=== PATIENT | female | born 1990 | race Two or more races ===

== ENCOUNTER → 2020-11-11 | Outpatient (CLI) | payer MEDICAID ==
[2020-11-11 12:53] LABS: Basophils # (auto) 0.1 10 ^3/uL (0-0.2); Basophils % (auto) 0.6 % (0.0-2.0); Eosinophils # (auto) 0.2 10 ^3/uL (0-0.8); Eosinophils % (auto) 1.6 % (0.0-7.0); Hematocrit 40.3 % (36.0-46.0); Hemoglobin 14.2 g/dL (12.2-16.2); Lymphocytes # (auto) 1.6 10 ^3/uL (0.4-5.4); Lymphocytes % (auto) 14.5 % (10.0-50.0); Mean Corpuscular Hemoglobin 32.2 pg (28.0-32.0); Mean Corpuscular Hgb Conc. 35.3 g/dL (32.0-36.0); Mean Corpuscular Volume 91.1 fL (80.0-100.0); Monocytes # (auto) 0.6 10 ^3/uL (0-1.3); Neutrophils # (auto) 8.6 10 ^3/uL (1.6-8.6); Neutrophils % (auto) 78.3 % (37.0-80.0); Nucleated Red Blood Cells % 0.1 %; Platelet Count (auto) 250 10^3/uL (140-450); Red Blood Cells 4.42 10^6/uL (4.0-5.20); Red Cell Distribution Width 12.8 % (11.8-14.3)
[2020-11-11 13:54] LABS: Amphetamine Screen, Urine NEGATIVE (NEGATIVE); Barbiturate Scree,Urine NEGATIVE (NEGATIVE); Benzodiazephine Screen, Urine NEGATIVE (NEGATIVE); Cannabinoid Screen, Urine NEGATIVE (NEGATIVE); Cocaine Screen, Urine NEGATIVE (NEGATIVE); Opiate Scree,Urine NEGATIVE (NEGATIVE); Phencyclidine Screen, Urine NEGATIVE (NEGATIVE)
[2020-11-12 06:06] LABS: RPR Non Reactive (Non Reactive)
== END | disposition home or self-care (01) ==
LOC: LAB 12:12
PROVIDERS: ATTEND Obstetrics & Gynecology
DX: Z34.80 Encounter for supervision of other normal pregnancy, unspecified trimester (principal); Z31.430 Encounter of female for testing for genetic disease carrier status for procreative management; N39.0 Urinary tract infection, site not specified; Z3A.00 Weeks of gestation of pregnancy not specified
CPT/HCPCS: 36415; 80307; 81220; 83036; 84112; 84144; 84702; 85025; 85049; 86592; 86703; 86765; 86850; 86900; 86901; 87086; 87340

== ENCOUNTER → 2020-11-26 | Outpatient (CLI) | payer MEDICAID ==
[2020-11-26 11:48] LABS: Urine WBC None Seen /hpf (0 - 5)
[2020-11-26 11:59] LABS: Basophils # (auto) 0 10 ^3/uL (0-0.2); Basophils % (auto) 0.3 % (0.0-2.0); Eosinophils # (auto) 0.2 10 ^3/uL (0-0.8); Eosinophils % (auto) 1.5 % (0.0-7.0); Hematocrit 38.2 % (36.0-46.0); Hemoglobin 13.1 g/dL (12.2-16.2); Lymphocytes # (auto) 1.5 10 ^3/uL (0.4-5.4); Lymphocytes % (auto) 13.7 % (10.0-50.0); Mean Corpuscular Hemoglobin 31.3 pg (28.0-32.0); Mean Corpuscular Hgb Conc. 34.2 g/dL (32.0-36.0); Mean Corpuscular Volume 91.5 fL (80.0-100.0); Monocytes # (auto) 0.5 10 ^3/uL (0-1.3); Monocytes % (auto) 4.5 % (0.0-12.0); Neutrophils # (auto) 8.7 10 ^3/uL (1.6-8.6); Red Blood Cells 4.17 10^6/uL (4.0-5.20); Red Cell Distribution Width 12.7 % (11.8-14.3); White Blood Cell 10.9 10^3/uL (4.4-10.8)
[2020-11-26 12:18] LABS: Urine Bacteria NONE SEEN /hpf (None Seen); Urine Blood Negative /uL (Negative); Urine Specific Gravity 1.012 (1.001-1.035)
== END | disposition home or self-care (01) ==
LOC: LAB 11:02
PROVIDERS: ATTEND Specialist
DX: Z34.80 Encounter for supervision of other normal pregnancy, unspecified trimester (principal); Z3A.00 Weeks of gestation of pregnancy not specified
CPT/HCPCS: 36415; 81001; 85025; 86703; 86762; 86850; 86900; 86901

== ENCOUNTER 2024-10-03 01:28 | Observation (INO) | payer MEDICAID ==
[~2024-10-03] VITALS: Ht 160 cm; Wt 108.9 kg
[2024-10-03] MEDS: TERBUTALINE SULFATE 1 MG/ML 1ML VIAL SC ONE (01:57)
[2024-10-03] MEDS: TERBUTALINE SULFATE 1 MG/ML 1ML VIAL SC SCH (02:28)
[2024-10-03] MEDS: LACTATED RINGER'S 1,000 ML IV SCH (03:24)
[2024-10-03] MEDS: LACTATED RINGER'S 1,000 ML IV ONE (03:24)
[2024-10-03] MEDS: BETAMETHASONE ACET (30mg/5ml) 5ml Vial 6mg/ml IM ONE (03:27)
--- NOTE | 2024-10-03 04:15 | DVH ---
Examination: OBUS CLINICAL INDICATION: Vaginal Bleeding. COMPARISON: None. TECHNIQUE: Transabdominal second trimester OB ultrasound was performed. FINDINGS: Real-time ultrasound examination of the pelvis shows a normal single intrauterine pregnanc y. Placenta is anterior and shows Grade I maturity. A 4.7 x 4.0 x 6.1 cm heterogenous structure wit hin the placenta with internal vascularity probable placental cotyledon formation. cardiac act ivity and movements are well appreciated. Fetus is in vertex position. Organs seen: Legs, 4-chambered heart, stomach, kidneys, spine, urinary bladder, arm, cerebellum, cis terna magna, 3-vessel cord, cord insertion, and face. No gross structural abnormality. Biometric Parameters: Parameter Measurement Corresponding GA Percentile BPD (Hadlock)8.29 cm 33 weeks 2 days Andgt;97% HC (Hadlock) 30.26 cm 33 weeks 4 days 94.2% AC (Hadlock) 30.80 cm 34 weeks 5 days Andgt;97% FL (Hadlock) 5.77 cm 30weeks 1 days 32.8% Estimated Weight (Hadlock): 2152 g � 322.80 g (4 lb 12 oz � 11 oz). EFW Percentile (Hadlock-GP): Andgt;97% Additional Biometric Ratios Andamp; Indices: OFD (HC): 10.71 cm. Cephalic Index (CI): 77.40 (Normal range: 70.00 - 86.00) FL/BPD (Hohler): 69.60 (Normal: 71.0 - 87.0). HC/AC (Wallace): 0.98 (Normal: 0.96 - 1.11). FL/AC (Hadlock): 18.73 (Normal: 20.00 - 24.00). FL/HC (Hadlock): 19.07 (Normal: 19.90 - 21.50). Other Findings: Heart Rate (M-Mode): 167 bpm. Average Gestational Age (AUA): 33 weeks 0 days � 2 weeks 2 days. CEHLSEY (AUA): 11/21/2024. CHELSEY (OPE): 12/10/2024. Internal Os: Closed Cervical Length: Adequate measuring approximately 8 cm. MIRNA-17.3 cm. IMPRESSION: 1. Single live intrauterine . 2. Gestational Age (average): Approximately 33 weeks 0 days � 2 weeks 2 days. 3. growth is above the 97th percentile, consistent with advanced growth parameters. 4. A 4.7 x 4.0 x 6.1 cm heterogenous structure within the placenta with internal vascularity probabl e placental cotyledon formation. Normal cervical length. Internal os is closed. No evidence of fu nneling of the internal loss. Electronically Signed 10/03/2024 04:14 Liudmila Lord
--- NOTE | 2024-10-03 13:05 | DVHDS2 ---
Physician Discharge Progress N Final Diagnosis: ptl,32 wks left ama Operations or Procedures: Operations or Procedures nst reactoive reviwed,sono Other Interventions Other Interventions [facility] ,she understands risk of ptl Condition on Discharge: Undetermined Disposition: AMA Discharge Instructions: Diet: See Comment Activity: Medications: na Follow Up Care: Specialist: left ama Discharge Statement: "Patient was advised to return to the ER or call 911 if any headaches, dizziness, shortness of breath, chest pain, abdominal pain, bleeding, fevers, or worsening of medical condition. Patient was counseled about treatment plan, medications, possible side effects, patientverbalized understanding. All questions were answered to the best of my ability. This discharge took greater then 30 minutes in planning, reviewing documentation, counseling the patient, and discussing with other team members." Visit Coding OBGYN Date of Service: October 02, 2024 Billing Provider: BORIS ALEJANDRO DO BUSINESS DEPARTMENT CHAIR Common Visit Codes: 32209-YHBIGMH OBS CARE (HIGH) BUSINESS DEPARTMENT CHAIR Procedure Codes: 89637-23- NON-STRESS TEST BORIS ALEJANDRO DO October 03, 2024 13:05
== END 2024-10-03 03:22 | disposition left against medical advice (07) ==
LOC: LDRP 01:28
PROVIDERS: ADMIT Obstetrics & Gynecology; ATTEND Obstetrics & Gynecology
DX: O60.03 Preterm labor without delivery, third trimester (principal); O46.93 Antepartum hemorrhage, unspecified, third trimester; Z3A.32 32 weeks gestation of pregnancy; Z98.890 Other specified postprocedural states; Z79.899 Other long term (current) drug therapy; Z53.29 Procedure and treatment not carried out because of patient's decision for other reasons; Z88.0 Allergy status to penicillin
CPT/HCPCS: 59025; 76805; 82948; 82962; 94760; 96360; 96361; 96372; G0378; J0702; J3105